=== PATIENT | male | born 1970 | race Caucasian/White ===

== ENCOUNTER 2017-10-14 18:49 | Emergency (ER) | payer MEDICAID ==
[~2017-10-14] VITALS: Ht 172.7 cm; Wt 100.0 kg
[~2017-10-14 18:49] MED LIST: MUPI15CR TOP
[2017-10-14 22:40] VITALS: BP 148/86
== END 2017-10-14 22:20 | disposition home or self-care (01) ==
LOC: ER 18:49
DX: M25.551 Pain in right hip (principal); I10 Essential (primary) hypertension; E11.9 Type 2 diabetes mellitus without complications; F17.200 Nicotine dependence, unspecified, uncomplicated; F15.90 Other stimulant use, unspecified, uncomplicated; Z59.0 Homelessness; Z98.890 Other specified postprocedural states; Z79.899 Other long term (current) drug therapy
CPT/HCPCS: 73502; 99284

== ENCOUNTER 2017-11-03 10:20 | Emergency (ER) | payer MEDICAID ==
[~2017-11-03] VITALS: Ht 170.2 cm; Wt 95.0 kg
[2017-11-03 10:27] VITALS: BP 142/65
[2017-11-03] MEDS ORDERED: CLIN300C53 PO (10:32)
== END 2017-11-03 10:59 | disposition home or self-care (01) ==
LOC: ER 10:21
DX: L02.414 Cutaneous abscess of left upper limb (principal); I10 Essential (primary) hypertension; E11.9 Type 2 diabetes mellitus without complications; F15.90 Other stimulant use, unspecified, uncomplicated; F17.200 Nicotine dependence, unspecified, uncomplicated; Z59.0 Homelessness; Z98.890 Other specified postprocedural states
CPT/HCPCS: 99284

== ENCOUNTER 2018-04-20 19:17 | Inpatient (IN) | payer MEDICAID ==
[~2018-04-20] VITALS: Ht 170.2 cm; Wt 100.0 kg
[~2018-04-20 19:17] MED LIST changes: +IBUP-1985 PO; +METH-360 PO
[2018-04-20] MEDS ORDERED: ibuprofen 100 MG/5 ML oral susp PO ONE (19:30)
[2018-04-20] MEDS ORDERED: ibuprofen 200mg tablet PO ONE (19:35)
[2018-04-20 20:05] LABS: BASOPHILS # (AUTO) 0.1 X10'3 (0-0.2); BASOPHILS % (AUTO) 0.2 % (0-1); EOSINOPHILS % (AUTO) 0 % (0-6); HEMOGLOBIN 13.8 g/dl (14.0-17.9); LYMPHOCYTES # (AUTO) 1.3 X10'3 (1.1-4.8); LYMPHOCYTES % (AUTO) 4.7 % (21-51); MEAN CORPUSCULAR HEMOGLOBIN 28.5 PG (27.0-31.0); MEAN CORPUSCULAR HGB CONC 33.5 g/dL (33.0-36.5); MEAN CORPUSCULAR VOLUME 85.1 FL (78-98); MEAN PLATELET VOLUME 8.4 FL (7.4-10.4); MONOCYTES # (AUTO) 1.4 X10'3 (0-0.9); NEUTROPHILS # (AUTO) 25.3 X10'3 (1.8-7.7); NEUTROPHILS % (AUTO) 90.1 % (42-75); PLATELET COUNT 264 X10'3 (140-440); RED BLOOD COUNT 4.83 X10'6 (4.70-6.10); RED CELL DISTRIBUTION WIDTH 14.2 % (11.5-14.5)
[2018-04-20 20:18] LABS: INR 1.1 INR; PARTIAL THROMBOPLASTIN TIME 30 SECONDS (22-32); PROTHROMBIN TIME 11.2 SECONDS (9.0-12.0)
[2018-04-20 20:26] LABS: ALANINE AMINOTRANSFERASE 35 U/L (12-78); ALBUMIN 3.8 G/DL (3.4-5.0); ALBUMIN/GLOBULIN RATIO 0.9 (1.1-1.5); ALKALINE PHOSPHATASE 102 IU/L (46-116); ANION GAP 12 (8-16); ASPARTATE AMINO TRANSFERASE 49 U/L (10-37); BLOOD UREA NITROGEN 24 MG/DL (7-18); BUN/CREATININE RATIO 15.8 (5.4-32.0); CALCIUM 8.9 MG/DL (8.5-10.1); CHLORIDE 98 MMOL/L (99-107); CREATININE 1.52 MG/DL (0.60-1.10); GLUCOSE 152 MG/DL (70-104); POTASSIUM 3.6 MMOL/L (3.5-5.1); SODIUM 138 MMOL/L (135-145); TOTAL PROTEIN 8.1 G/DL (6.4-8.2); eGFR 50 ML/MIN
[2018-04-20] MEDS ORDERED: normal saline 1000ML IV soln IVB ONE (20:35)
[2018-04-20] MEDS ORDERED: levoFLOXACIN-Levaquin 750MG/D5 150 ML IV STA (20:47)
[2018-04-20 20:50] LABS: PLATELET ESTIMATE NORMAL; TOTAL CELLS COUNTED 100
[2018-04-20] MEDS ORDERED: temazepam 15mg capsule PO PRN (21:00)
[2018-04-20] MEDS: normal saline 1000ml 1,000 ML IV SCH (22:03)
[2018-04-20] MEDS ORDERED: ondansetron/PF 4mg/2ml inj IV PRN (22:05)
[2018-04-20] MEDS ORDERED: magnesium hydroxide 30ml (MOM) UD suspension PO PRN (22:05)
[2018-04-20] MEDS ORDERED: mag hydrox/Alum hydrox/simeth 30ml oral suspension PO PRN (22:05)
[2018-04-20] MEDS ORDERED: acetaminophen 325mg tablet PO PRN ×2 (22:05)
[2018-04-20] MEDS ORDERED: METF500T PO (22:37)
[2018-04-20] MEDS ORDERED: GABA600T13 PO (22:37)
[2018-04-20 23:26] LABS: CLARITY,URINE CLEAR (Clear); COLOR,URINE YELLOW (Yellow); GLUCOSE, URINE 250 mg/dl (Neg); KETONES,URINE 40 mg/dl (Neg); LEUKOCYTE ESTERASE ,URINE NEGATIVE (Neg); NITRITES, URINE NEGATIVE (Neg); OCCULT BLOOD,URINE LARGE (Neg); PH,URINE 5.5 (4.8-8.0); PROTEIN,URINE 30 mg/dl (Neg); UROBILINOGEN,URINE 0.2 E.U/dL (0.2-1.0)
[2018-04-20 23:31] LABS: UA COLLECTION TYPE URINAL
[2018-04-20 23:33] LABS: MUCUS STRANDS MANY /LPF (Neg); SQUAMOUS EPITHELIAL CELL,UR MODERATE /LPF (FEW)
[2018-04-20 23:34] LABS: BACTERIA,URINE 1+ /HPF (Neg)
[2018-04-21] MEDS: HYDROcodone/acetaminophen 5mg/325mg tablet PO PRN ×2 (03:51→11:45)
--- NOTE | 2018-04-21 06:31 | NUR ---
PATIENT ON BED AWAKE.AWAITING FOR ROOM, ASSIGNMENT.
[2018-04-21 07:57] LABS: BASOPHILS % (AUTO) 0.2 % (0-1); EOSINOPHILS # (AUTO) 0.1 X10'3 (0-0.9); EOSINOPHILS % (AUTO) 0.3 % (0-6); HEMATOCRIT 34.4 % (42.0-52.0); HEMOGLOBIN 11.5 g/dl (14.0-17.9); LYMPHOCYTES # (AUTO) 1.5 X10'3 (1.1-4.8); LYMPHOCYTES % (AUTO) 6.4 % (21-51); MEAN CORPUSCULAR HEMOGLOBIN 28.7 PG (27.0-31.0); MEAN CORPUSCULAR HGB CONC 33.5 g/dL (33.0-36.5); MEAN CORPUSCULAR VOLUME 85.7 FL (78-98); MEAN PLATELET VOLUME 8.4 FL (7.4-10.4); MONOCYTES # (AUTO) 1.7 X10'3 (0-0.9); MONOCYTES % (AUTO) 7.2 % (2-12); NEUTROPHILS # (AUTO) 20.1 X10'3 (1.8-7.7); NEUTROPHILS % (AUTO) 85.9 % (42-75); PLATELET COUNT 217 X10'3 (140-440); RED BLOOD COUNT 4.02 X10'6 (4.70-6.10); RED CELL DISTRIBUTION WIDTH 14.4 % (11.5-14.5); WHITE BLOOD COUNT 23.4 X10'3 (4.5-11.0)
[2018-04-21] MEDS: normal saline 1000ml 1,000 ML IV SCH ×2 (08:03→21:39)
[2018-04-21] MEDS: enoxaparin 30mg/0.3ml syringe SUBCUT SCH (08:15)
[2018-04-21 08:16] LABS: ALBUMIN 2.7 G/DL (3.4-5.0); ANION GAP 10 (8-16); BLOOD UREA NITROGEN 24 MG/DL (7-18); BUN/CREATININE RATIO 27.3 (5.4-32.0); CHLORIDE 104 MMOL/L (99-107); CREATININE 0.88 MG/DL (0.60-1.10); GLUCOSE 112 MG/DL (70-104); POTASSIUM 3.4 MMOL/L (3.5-5.1); SODIUM 140 MMOL/L (135-145); TOTAL CARBON DIOXIDE 25.9 MMOL/L (24-32); eGFR > 90 ML/MIN
--- NOTE | 2018-04-21 08:40 | NUR ---
ATTEMPTED TO CALL REPORT,WILSON RN PASSING MEDS WILL CALL ED RN IN 10 MINUTES.
--- NOTE | 2018-04-21 09:40 | NUR ---
Report received from ED RNDaniela.
[2018-04-21 10:00] VITALS: BP 126/67
--- NOTE | 2018-04-21 10:00 | NUR ---
Pt arrived to room 359B from ED.
[2018-04-21] MEDS ORDERED: levoFLOXACIN 750MG TABLET PO SCH (11:00)
[2018-04-21 11:21] VITALS: BP 129/73
[2018-04-21 11:50] LABS: HEMOGLOBIN A1C 7.2 % (4.5-6.2)
[2018-04-21] MEDS ORDERED: dextrose 50%-water 50ml dispensing syringe IV PRN ×2 (11:50)
[2018-04-21] MEDS ORDERED: dextrose ORAL solution 15 GM/59 ML bottle PO PRN (11:50)
[2018-04-21] MEDS ORDERED: MESSAGE TO PHARMACY PO ONE (11:50)
[2018-04-21] MEDS ORDERED: glucagon, human recombinant 1mg kit SUBCUT PRN (11:50)
[2018-04-21] MEDS ORDERED: potassium Cl 40MEQ/NS 500ml 500 ML IV PRN ×2 (12:25)
[2018-04-21] MEDS ORDERED: magnesium Cl slow-release 64mg tablet PO PRN (12:25)
[2018-04-21] MEDS ORDERED: magnesium 4gm in 100ml NS 100 ML IV PRN (12:25)
[2018-04-21] MEDS ORDERED: magnesium 2GM in 50ml NS 50 ML IV PRN (12:25)
[2018-04-21] MEDS ORDERED: potassium Cl 20 mEq SR tablet PO PRN (12:25)
[2018-04-21] MEDS: potassium Cl 20 mEq SR tablet PO PRN ×3 (12:57→20:05)
[2018-04-21] MEDS ORDERED: METH-360 PO (12:59)
[2018-04-21] MEDS ORDERED: pneumococcal 23-VAL P-sac vacc 25 mcg/0.5ml vial IMVAC ONE ×2 (13:00→17:00)
--- NOTE | 2018-04-21 18:30 | NUR ---
Problems reprioritized. Patient report given, questions answered & plan of care reviewed with KWESI Campos.
--- NOTE | 2018-04-21 18:57 | NUR ---
Patient in room [facility] 359. I have received report from Maxime Gomez and had the opportunity to ask questions and assume patient care. Addendum: 04/21/18 at 1858 by Beth Tavarez RN Amended: Links added.
[2018-04-21 19:00] VITALS: BP 129/68
--- NOTE | 2018-04-21 19:30 | NUR ---
pt with temp and medicated for this and took hs meds.
[2018-04-21] MEDS: methylPREDNISolone sod succ 125mg/2ml vial IV SCH (20:04)
[2018-04-21] MEDS: lactobacillus rhamnosus 10,000 MMU CELLS/CAPSULE PO SCH (20:05)
[2018-04-21] MEDS: insulin glargine (Lantus) pen - multi-dose SQ SCH (20:14)
--- NOTE | 2018-04-21 21:00 | NUR ---
pt resting after medicating with tylenol and room temp turned down.
--- NOTE | 2018-04-21 23:00 | NUR ---
pt resting eyes closed without changes at this time.
[2018-04-22] VITALS: BP 147/76
--- NOTE | 2018-04-22 01:00 | NUR ---
pt resting eyes closed no changes.
--- NOTE | 2018-04-22 03:00 | NUR ---
resting eyes closed without changes.
[2018-04-22 04:00] VITALS: BP 146/73
[2018-04-22] MEDS: HYDROcodone/acetaminophen 5mg/325mg tablet PO PRN ×2 (05:20→19:56)
--- NOTE | 2018-04-22 05:20 | NUR ---
right leg approx 6cm area above Er marking on left calf heading toward the knee with greenish discoloration outline this am this area appears to have expanded.
--- NOTE | 2018-04-22 05:25 | NUR ---
pt medicated for pain with norco 5 for leg pain.
--- NOTE | 2018-04-22 06:47 | NUR ---
Problems reprioritized. Patient report given, questions answered & plan of care reviewed with Poonam Gomez.
--- NOTE | 2018-04-22 06:58 | NUR ---
Patient in room [facility] 359. I have received report from KWESI Campos and had the opportunity to ask questions and assume patient care.
[2018-04-22 07:20] VITALS: BP 153/77
[2018-04-22 07:24] LABS: ALBUMIN 2.6 G/DL (3.4-5.0); ANION GAP 12 (8-16); BLOOD UREA NITROGEN 22 MG/DL (7-18); BUN/CREATININE RATIO 26.2 (5.4-32.0); CALCIUM 8.6 MG/DL (8.5-10.1); CHLORIDE 104 MMOL/L (99-107); CREATININE 0.84 MG/DL (0.60-1.10); GLUCOSE 204 MG/DL (70-104); SODIUM 139 MMOL/L (135-145); TOTAL CARBON DIOXIDE 22.8 MMOL/L (24-32); eGFR > 90 ML/MIN
[2018-04-22 07:35] LABS: BASOPHILS % (AUTO) 0 % (0-1); EOSINOPHILS % (AUTO) 0 % (0-6); HEMATOCRIT 35.3 % (42.0-52.0); HEMOGLOBIN 11.8 g/dl (14.0-17.9); LYMPHOCYTES # (AUTO) 0.7 X10'3 (1.1-4.8); LYMPHOCYTES % (AUTO) 4.6 % (21-51); MEAN CORPUSCULAR HEMOGLOBIN 28.8 PG (27.0-31.0); MEAN CORPUSCULAR HGB CONC 33.4 g/dL (33.0-36.5); MEAN CORPUSCULAR VOLUME 86.2 FL (78-98); MEAN PLATELET VOLUME 8.7 FL (7.4-10.4); MONOCYTES # (AUTO) 0.7 X10'3 (0-0.9); MONOCYTES % (AUTO) 4.6 % (2-12); NEUTROPHILS # (AUTO) 14.7 X10'3 (1.8-7.7); NEUTROPHILS % (AUTO) 90.8 % (42-75); PLATELET COUNT 209 X10'3 (140-440); RED CELL DISTRIBUTION WIDTH 14.3 % (11.5-14.5); WHITE BLOOD COUNT 16.2 X10'3 (4.5-11.0)
[2018-04-22] MEDS: enoxaparin 30mg/0.3ml syringe SUBCUT SCH (08:47)
[2018-04-22] MEDS: pantoprazole 40mg Tablet.DR PO SCH (08:47)
[2018-04-22] MEDS: lactobacillus rhamnosus 10,000 MMU CELLS/CAPSULE PO SCH ×2 (08:47→19:52)
[2018-04-22] MEDS: methylPREDNISolone sod succ 125mg/2ml vial IV SCH ×2 (08:47→19:49)
[2018-04-22] MEDS ORDERED: levoFLOXACIN 750MG TABLET JT SCH (11:00)
[2018-04-22 11:30] VITALS: BP 153/81
[2018-04-22] MEDS: levoFLOXACIN 500mg tablet JT SCH (12:27)
[2018-04-22] MEDS: insulin Lispro (HumaLOG) vial - multi-dose SQ SCH ×3 (13:16→21:38)
[2018-04-22] MEDS: normal saline 1000ml 1,000 ML IV SCH (14:00)
[2018-04-22] MEDS: albuterol 2.5 MG/3 ML nebule NEB SCH ×2 (14:14→19:32)
--- NOTE | 2018-04-22 14:18 | NUR ---
Consult: Pt admit w/ PNA. Pt is with A1C 7.2. Met pt at bedside gave written and verbal DM and high protein education. Pt states [facility] which isn't enough food or protein. Reviewed reading nutrition labels w/ pt and encouraged pt to purchase ensure when able. Pt is agreeable to double protein and Ensure Chocolate High Protein TID, discussed w/ dietary and okayed w/ MD. Will continue to monitor. Addendum: 04/22/18 at [address] Amended: Links added. Addendum: 04/22/18 at [address] I have reviewed and agree with note by Editor Map. Tereza Chan RD
--- NOTE | 2018-04-22 18:59 | NUR ---
Problems reprioritized. Patient report given, questions answered & plan of care reviewed with KWESI Barrera.
--- NOTE | 2018-04-22 19:00 | NUR ---
Patient in room [facility] 359. I have received report from ROYAL OROSCO and had the opportunity to ask questions and assume patient care.
[2018-04-22] MEDS: nicotine 14mg patch - 24hr TD SCH (19:49)
[2018-04-22 20:00] VITALS: BP 124/61
[2018-04-22] MEDS: insulin glargine (Lantus) pen - multi-dose SQ SCH (21:37)
[2018-04-23] VITALS: BP 122/65
[2018-04-23] MEDS: HYDROcodone/acetaminophen 5mg/325mg tablet PO PRN ×5 (00:24→23:18)
[2018-04-23] MEDS: albuterol 2.5 MG/3 ML nebule NEB SCH ×4 (02:29→20:01)
[2018-04-23] MEDS: normal saline 1000ml 1,000 ML IV SCH (05:39)
--- NOTE | 2018-04-23 06:10 | NUR ---
Problems reprioritized. Patient report given, questions answered & plan of care reviewed with FAINA OROSCO.
[2018-04-23 06:11] LABS: BASOPHILS % (AUTO) 0.1 % (0-1); EOSINOPHILS # (AUTO) 0.2 X10'3 (0-0.9); EOSINOPHILS % (AUTO) 1.3 % (0-6); HEMATOCRIT 33.8 % (42.0-52.0); HEMOGLOBIN 11.2 g/dl (14.0-17.9); LYMPHOCYTES # (AUTO) 0.7 X10'3 (1.1-4.8); LYMPHOCYTES % (AUTO) 4.9 % (21-51); MEAN CORPUSCULAR HEMOGLOBIN 28.5 PG (27.0-31.0); MEAN CORPUSCULAR HGB CONC 33.1 g/dL (33.0-36.5); MEAN CORPUSCULAR VOLUME 86.1 FL (78-98); MEAN PLATELET VOLUME 8.9 FL (7.4-10.4); MONOCYTES # (AUTO) 0.5 X10'3 (0-0.9); MONOCYTES % (AUTO) 3.6 % (2-12); NEUTROPHILS # (AUTO) 13.5 X10'3 (1.8-7.7); NEUTROPHILS % (AUTO) 90.1 % (42-75); PLATELET COUNT 234 X10'3 (140-440); RED BLOOD COUNT 3.93 X10'6 (4.70-6.10); RED CELL DISTRIBUTION WIDTH 14.2 % (11.5-14.5)
--- NOTE | 2018-04-23 06:11 | NUR ---
Patient in room [facility] 359. I have received report from KWESI Barrera and had the opportunity to ask questions and assume patient care.
[2018-04-23 06:17] LABS: ALBUMIN 2.6 G/DL (3.4-5.0); ANION GAP 12 (8-16); BLOOD UREA NITROGEN 25 MG/DL (7-18); BUN/CREATININE RATIO 29.8 (5.4-32.0); CALCIUM 8.9 MG/DL (8.5-10.1); CHLORIDE 104 MMOL/L (99-107); CREATININE 0.84 MG/DL (0.60-1.10); GLUCOSE 250 MG/DL (70-104); POTASSIUM 3.9 MMOL/L (3.5-5.1); SODIUM 139 MMOL/L (135-145); TOTAL CARBON DIOXIDE 23.4 MMOL/L (24-32); eGFR > 90 ML/MIN
[2018-04-23 07:13] VITALS: BP 144/95
[2018-04-23] MEDS: methylPREDNISolone sod succ 125mg/2ml vial IV SCH ×2 (07:26→19:05)
[2018-04-23] MEDS: lactobacillus rhamnosus 10,000 MMU CELLS/CAPSULE PO SCH ×2 (07:26→19:05)
[2018-04-23] MEDS: pantoprazole 40mg Tablet.DR PO SCH (07:26)
[2018-04-23] MEDS: enoxaparin 30mg/0.3ml syringe SUBCUT SCH (07:27)
[2018-04-23] MEDS: nicotine 14mg patch - 24hr TD SCH (07:27)
[2018-04-23] MEDS: insulin Lispro (HumaLOG) vial - multi-dose SQ SCH ×3 (08:35→19:05)
[2018-04-23 12:15] VITALS: BP 145/80
[2018-04-23] MEDS: levoFLOXACIN 500mg tablet JT SCH (12:17)
[2018-04-23] MEDS: vancomycin inj 1,250 MG in normal saline 250ml IV soln 250 ML IV SCH ×2 (13:46→21:08)
--- NOTE | 2018-04-23 15:49 | NUR ---
Right forearm PIV infiltrated. DC'd, cannula intact. New 20g PIV initiated on the left forearm.
--- NOTE | 2018-04-23 18:21 | NUR ---
Patient in room [facility] 359. I have received report from Poonam OROSCO and had the opportunity to ask questions and assume patient care.
--- NOTE | 2018-04-23 18:21 | NUR ---
Problems reprioritized. Patient report given, questions answered & plan of care reviewed with KWESI De La Rosa.
[2018-04-23 20:00] VITALS: BP 149/77
[2018-04-23] MEDS: insulin glargine (Lantus) pen - multi-dose SQ SCH (21:11)
--- NOTE | 2018-04-23 21:12 | NUR ---
Nitcotine patch was removed and not documented. No nicotine patch present. will continue to moitor. Addendum: 04/23/18 at 2207 by Estrella Eagle RN Nitcotine patch was removed and not documented. No nicotine patch present. will continue to monitor.
[2018-04-24] VITALS: BP 141/69
[2018-04-24] MEDS: albuterol 2.5 MG/3 ML nebule NEB SCH ×4 (02:22→20:34)
[2018-04-24] MEDS: vancomycin inj 1,250 MG in normal saline 250ml IV soln 250 ML IV SCH ×3 (04:50→21:15)
--- NOTE | 2018-04-24 06:00 | NUR ---
Problems reprioritized. Patient report given, questions answered & plan of care reviewed with Laura OROSCO. NO signs of distress. pt resting. call light and frq used belongings within reach. IV intact and IVF infusing per MDs orders.
--- NOTE | 2018-04-24 06:00 | NUR ---
Patient in room [facility] 359. I have received report from KWESI De La Rosa and had the opportunity to ask questions and assume patient care. patient resting comfortably at this time. Call light and items of frequent use in reach of patient.
[2018-04-24 06:01] LABS: BASOPHILS % (AUTO) 0.1 % (0-1); EOSINOPHILS # (AUTO) 0.1 X10'3 (0-0.9); EOSINOPHILS % (AUTO) 0.8 % (0-6); HEMATOCRIT 33.3 % (42.0-52.0); HEMOGLOBIN 11.1 g/dl (14.0-17.9); LYMPHOCYTES # (AUTO) 1.4 X10'3 (1.1-4.8); LYMPHOCYTES % (AUTO) 8.1 % (21-51); MEAN CORPUSCULAR HEMOGLOBIN 28.6 PG (27.0-31.0); MEAN CORPUSCULAR HGB CONC 33.4 g/dL (33.0-36.5); MEAN CORPUSCULAR VOLUME 85.7 FL (78-98); MEAN PLATELET VOLUME 8.7 FL (7.4-10.4); MONOCYTES # (AUTO) 0.7 X10'3 (0-0.9); MONOCYTES % (AUTO) 4.1 % (2-12); NEUTROPHILS # (AUTO) 14.7 X10'3 (1.8-7.7); NEUTROPHILS % (AUTO) 86.9 % (42-75); PLATELET COUNT 269 X10'3 (140-440); RED BLOOD COUNT 3.89 X10'6 (4.70-6.10); RED CELL DISTRIBUTION WIDTH 14.4 % (11.5-14.5); WHITE BLOOD COUNT 16.9 X10'3 (4.5-11.0)
[2018-04-24 06:20] LABS: ALBUMIN 2.6 G/DL (3.4-5.0); ANION GAP 13 (8-16); BLOOD UREA NITROGEN 25 MG/DL (7-18); BUN/CREATININE RATIO 33.8 (5.4-32.0); CALCIUM 8.6 MG/DL (8.5-10.1); CHLORIDE 105 MMOL/L (99-107); CREATININE 0.74 MG/DL (0.60-1.10); GLUCOSE 134 MG/DL (70-104); POTASSIUM 3.4 MMOL/L (3.5-5.1); SODIUM 142 MMOL/L (135-145); eGFR > 90 ML/MIN
[2018-04-24 07:00] VITALS: BP 150/78
[2018-04-24] MEDS: pantoprazole 40mg Tablet.DR PO SCH (08:00)
[2018-04-24] MEDS: lactobacillus rhamnosus 10,000 MMU CELLS/CAPSULE PO SCH ×2 (08:01→19:14)
[2018-04-24] MEDS: methylPREDNISolone sod succ 125mg/2ml vial IV SCH ×2 (08:01→19:14)
[2018-04-24] MEDS: levoFLOXACIN-Levaquin 500mg/D5 100 ML IV SCH (08:01)
[2018-04-24] MEDS: potassium Cl 20 mEq SR tablet PO PRN ×3 (08:02→19:14)
[2018-04-24] MEDS: nicotine 14mg patch - 24hr TD SCH (08:02)
[2018-04-24] MEDS: enoxaparin 30mg/0.3ml syringe SUBCUT SCH (08:02)
[2018-04-24] MEDS: HYDROcodone/acetaminophen 5mg/325mg tablet PO PRN ×4 (08:03→23:37)
--- NOTE | 2018-04-24 09:00 | NUR ---
Patient refused MOM and stated that he feels fine.
[2018-04-24] MEDS: insulin Lispro (HumaLOG) vial - multi-dose SQ SCH ×2 (10:06→13:46)
[2018-04-24 10:24] VITALS: BP 150/79
[2018-04-24 11:09] VITALS: BP 177/93
[2018-04-24] MEDS ORDERED: VANCOMYCIN LEVEL IV NR (12:30)
[2018-04-24] MEDS ORDERED: magnesium Cl slow-release 64mg tablet PO PRN (14:40)
[2018-04-24] MEDS ORDERED: potassium Cl 20 mEq SR tablet PO PRN (14:40)
[2018-04-24] MEDS ORDERED: magnesium 4gm in 100ml NS 100 ML IV PRN (14:40)
[2018-04-24] MEDS ORDERED: potassium Cl 40MEQ/NS 500ml 500 ML IV PRN ×2 (14:40)
[2018-04-24] MEDS: dextrose ORAL solution 15 GM/59 ML bottle PO PRN (17:20)
--- NOTE | 2018-04-24 17:45 | NUR ---
1700 Patient blood sugar 53. 1712 15 G glucose shot given. 1727 blood sugar 92. Patient bumped down to a level 4 from a level 6. Patient alert, oriented and in no apparent distress at this time.
--- NOTE | 2018-04-24 18:30 | NUR ---
Problems reprioritized. Patient report given, questions answered & plan of care reviewed with KWESI De La Rosa. Patient alert, oriented and in no apparent distress at this time. Patient finishing dinner. Call light and items of frequent use in reach of patient.
[2018-04-24] MEDS: insulin glargine (Lantus) pen - multi-dose SQ SCH (21:13)
[2018-04-24] MEDS: normal saline 1000ml 1,000 ML IV SCH (21:39)
[2018-04-25] VITALS: BP 151/93
[2018-04-25] MEDS: albuterol 2.5 MG/3 ML nebule NEB SCH ×4 (02:28→20:01)
[2018-04-25] MEDS: vancomycin inj 1,250 MG in normal saline 250ml IV soln 250 ML IV SCH (04:28)
[2018-04-25] MEDS: HYDROcodone/acetaminophen 5mg/325mg tablet PO PRN ×4 (04:36→21:12)
[2018-04-25 05:39] LABS: BASOPHILS % (AUTO) 0.3 % (0-1); EOSINOPHILS # (AUTO) 0.1 X10'3 (0-0.9); EOSINOPHILS % (AUTO) 0.8 % (0-6); HEMATOCRIT 34.9 % (42.0-52.0); HEMOGLOBIN 11.6 g/dl (14.0-17.9); LYMPHOCYTES # (AUTO) 1.6 X10'3 (1.1-4.8); LYMPHOCYTES % (AUTO) 11.2 % (21-51); MEAN CORPUSCULAR HEMOGLOBIN 28.6 PG (27.0-31.0); MEAN CORPUSCULAR HGB CONC 33.3 g/dL (33.0-36.5); MEAN CORPUSCULAR VOLUME 85.7 FL (78-98); MEAN PLATELET VOLUME 8.7 FL (7.4-10.4); MONOCYTES # (AUTO) 1.1 X10'3 (0-0.9); MONOCYTES % (AUTO) 7.6 % (2-12); NEUTROPHILS # (AUTO) 11.4 X10'3 (1.8-7.7); NEUTROPHILS % (AUTO) 80.1 % (42-75); PLATELET COUNT 290 X10'3 (140-440); RED BLOOD COUNT 4.07 X10'6 (4.70-6.10); RED CELL DISTRIBUTION WIDTH 14.8 % (11.5-14.5); WHITE BLOOD COUNT 14.3 X10'3 (4.5-11.0)
[2018-04-25 05:53] LABS: ALBUMIN 2.7 G/DL (3.4-5.0); ANION GAP 11 (8-16); BLOOD UREA NITROGEN 24 MG/DL (7-18); BUN/CREATININE RATIO 21.8 (5.4-32.0); CALCIUM 8.7 MG/DL (8.5-10.1); CHLORIDE 101 MMOL/L (99-107); GLUCOSE 404 MG/DL (70-104); POTASSIUM 4.3 MMOL/L (3.5-5.1); SODIUM 138 MMOL/L (135-145); TOTAL CARBON DIOXIDE 25.6 MMOL/L (24-32); eGFR 72 ML/MIN
--- NOTE | 2018-04-25 06:29 | NUR ---
Patient in room [facility] 359. I have received report from KWESI De La Rosa and had the opportunity to ask questions and assume patient care. Patient resting comfortably at this time. Call light and items of frequent use in reach of patient.
--- NOTE | 2018-04-25 06:33 | NUR ---
Problems reprioritized. Patient report given, questions answered & plan of care reviewed with Laura OROSCO. IV intact and IVF infusing per MDs orders. call light and frq used belongings within reach. no signs of distress. pt resting, eyes closed.
[2018-04-25 07:00] VITALS: BP 165/86
[2018-04-25] MEDS: pantoprazole 40mg Tablet.DR PO SCH (08:50)
[2018-04-25] MEDS: lactobacillus rhamnosus 10,000 MMU CELLS/CAPSULE PO SCH ×2 (08:51→19:39)
[2018-04-25] MEDS: methylPREDNISolone sod succ 125mg/2ml vial IV SCH ×2 (08:51→19:39)
[2018-04-25] MEDS: levoFLOXACIN-Levaquin 500mg/D5 100 ML IV SCH (08:51)
[2018-04-25] MEDS: enoxaparin 30mg/0.3ml syringe SUBCUT SCH (08:52)
[2018-04-25] MEDS: nicotine 21mg patch - 24 hr TD SCH (08:52)
[2018-04-25] MEDS: insulin Lispro (HumaLOG) vial - multi-dose SQ SCH ×2 (09:16→19:43)
[2018-04-25 11:00] VITALS: BP 155/77
--- NOTE | 2018-04-25 12:30 | NUR ---
Patient feeling shaky and weak, Patient blood sugar was 37 at 1212. 30 G of glucose shot given and at 1227 blood sugar was 90. Patient alert and oriented and in no apparent distress now. Patient bumped from a level 4 to a level 2. Will continue to monitor patient.
--- NOTE | 2018-04-25 13:42 | NUR ---
Initial: Pt admit with PNA, sepsis, and SOB. Per MD progress notes sepsis has resolved and pt on abx for tx of PNA and cellulitis. Pt also on steroids for COPD exacerbation treatment per MD progress notes. Pt currently on CHO controlled diet with double protein with documented PO intake 100% meeting nutrient needs. LBM 04/24. No edema or wounds. Will continue to follow. Recommendations: 1) Continue CHO controlled diet 2) Continue double protein TID; Chocolate Ensure high protein TID 3) Wt per rx Addendum: 04/25/18 at [address] Amended: Links added.
[2018-04-25] MEDS: clindamycin-Cleocin 900mg/D5W 50 ML IV SCH ×2 (16:47→23:54)
[2018-04-25] MEDS: normal saline 1000ml 1,000 ML IV SCH (16:51)
--- NOTE | 2018-04-25 18:24 | NUR ---
Problems reprioritized. Patient report given, questions answered & plan of care reviewed with KWESI Paulino.
[2018-04-25 18:50] VITALS: BP 159/65
[2018-04-25] MEDS: insulin glargine (Lantus) pen - multi-dose SQ SCH (21:44)
[2018-04-26] VITALS: BP 148/80
[2018-04-26] MEDS: albuterol 2.5 MG/3 ML nebule NEB SCH ×4 (01:57→21:27)
[2018-04-26] MEDS: HYDROcodone/acetaminophen 5mg/325mg tablet PO PRN ×5 (02:31→23:38)
[2018-04-26 07:30] VITALS: BP 154/91
[2018-04-26] MEDS: clindamycin-Cleocin 900mg/D5W 50 ML IV SCH ×3 (07:59→23:42)
[2018-04-26] MEDS: pantoprazole 40mg Tablet.DR PO SCH (08:00)
[2018-04-26] MEDS: lactobacillus rhamnosus 10,000 MMU CELLS/CAPSULE PO SCH ×2 (08:00→19:16)
[2018-04-26] MEDS: insulin Lispro (HumaLOG) vial - multi-dose SQ SCH ×3 (09:14→19:12)
[2018-04-26] MEDS: methylPREDNISolone sod succ 125mg/2ml vial IV SCH ×2 (09:16→19:16)
[2018-04-26] MEDS: enoxaparin 30mg/0.3ml syringe SUBCUT SCH (09:19)
[2018-04-26] MEDS: nicotine 21mg patch - 24 hr TD SCH (09:20)
[2018-04-26] MEDS: CefTRIAXone 2gm/D5W 50ml 50 ML IV SCH (09:21)
[2018-04-26 10:22] LABS: HIV ANTIBODY 1&2 RAPID NON-REACTIVE (Neg)
[2018-04-26 11:00] VITALS: BP 159/79
--- NOTE | 2018-04-26 18:55 | NUR ---
Problems reprioritized. Patient report given, questions answered & plan of care reviewed with Sophie OROSCO.
[2018-04-26 19:00] VITALS: BP 158/89
--- NOTE | 2018-04-26 21:00 | NUR ---
Pt thought blood sugar was dropping, 88 was his sugar, sandwich given w/ juice. Recheck in one hour had sugar at 119. Salcha good, no further 'unusual feelings'.
[2018-04-26] MEDS: insulin glargine (Lantus) pen - multi-dose SQ SCH (21:02)
[2018-04-26] MEDS: normal saline 1000ml 1,000 ML IV SCH (21:39)
[2018-04-27 00:01] VITALS: BP 139/64
[2018-04-27] MEDS: albuterol 2.5 MG/3 ML nebule NEB SCH ×2 (03:53→07:43)
[2018-04-27] MEDS: HYDROcodone/acetaminophen 5mg/325mg tablet PO PRN ×2 (05:32→09:27)
[2018-04-27 06:24] LABS: BASOPHILS # (AUTO) 0.1 X10'3 (0-0.2); BASOPHILS % (AUTO) 0.8 % (0-1); EOSINOPHILS # (AUTO) 0.2 X10'3 (0-0.9); HEMATOCRIT 36.6 % (42.0-52.0); HEMOGLOBIN 12.2 g/dl (14.0-17.9); LYMPHOCYTES # (AUTO) 2.1 X10'3 (1.1-4.8); LYMPHOCYTES % (AUTO) 13.7 % (21-51); MEAN CORPUSCULAR HEMOGLOBIN 28.9 PG (27.0-31.0); MEAN CORPUSCULAR HGB CONC 33.4 g/dL (33.0-36.5); MEAN CORPUSCULAR VOLUME 86.6 FL (78-98); MEAN PLATELET VOLUME 8.6 FL (7.4-10.4); MONOCYTES # (AUTO) 0.4 X10'3 (0-0.9); MONOCYTES % (AUTO) 2.6 % (2-12); NEUTROPHILS # (AUTO) 12.6 X10'3 (1.8-7.7); NEUTROPHILS % (AUTO) 81.9 % (42-75); PLATELET COUNT 374 X10'3 (140-440); RED BLOOD COUNT 4.22 X10'6 (4.70-6.10); RED CELL DISTRIBUTION WIDTH 14.6 % (11.5-14.5); WHITE BLOOD COUNT 15.4 X10'3 (4.5-11.0)
--- NOTE | 2018-04-27 06:24 | NUR ---
Report given to Cinthia OROSCO, questions asked and answered, rests quietly pain better
[2018-04-27 06:32] LABS: MAGNESIUM 2.1 MG/DL (1.5-2.4); POTASSIUM 4.2 MMOL/L (3.5-5.1)
[2018-04-27] MEDS: CefTRIAXone 2gm/D5W 50ml 50 ML IV SCH (07:29)
[2018-04-27 08:00] VITALS: BP_SYST 112; BP_SYST 137; BP_DIAS 68; BP_DIAS 74
[2018-04-27] MEDS: pantoprazole 40mg Tablet.DR PO SCH (09:01)
[2018-04-27] MEDS: lactobacillus rhamnosus 10,000 MMU CELLS/CAPSULE PO SCH (09:01)
[2018-04-27] MEDS: methylPREDNISolone sod succ 125mg/2ml vial IV SCH (09:02)
[2018-04-27] MEDS: enoxaparin 30mg/0.3ml syringe SUBCUT SCH (09:03)
[2018-04-27] MEDS: nicotine 21mg patch - 24 hr TD SCH (09:04)
[2018-04-27] MEDS ORDERED: CLINDAmcin 900mg/NS 50ml IVPB 50 ML IV SCH (09:23)
[2018-04-27] MEDS: insulin Lispro (HumaLOG) vial - multi-dose SQ SCH (09:25)
[2018-04-27] MEDS ORDERED: ALBU2.5V7 NEB (10:44)
[2018-04-27] MEDS ORDERED: CLIN300C85 PO (10:44)
[2018-04-27] MEDS ORDERED: NICO-687 TD (10:44)
[2018-04-27] MEDS ORDERED: CEFD300C3 PO (10:47)
[2018-04-27] MEDS ORDERED: IPRA4AER IH (10:49)
[2018-04-27] MEDS ORDERED: BUDE180A INH (10:49)
[2018-04-27 11:00] VITALS: BP 183/103
--- NOTE | 2018-04-27 11:49 | NUR ---
Discussed new Vantin order with MD Dan. She states pt. does not need to go home on this ABT as long as he is on clindamycin, and cefdinir.
[2018-04-27] MEDS: dextrose ORAL solution 15 GM/59 ML bottle PO PRN (12:18)
--- NOTE | 2018-04-27 12:33 | NUR ---
Pt. had critical glucose of 53, glucose PO per order given, BG rechecked and is 123. Pt. asymptomatic at all times. Eating lunch before discharge. Pt. states he does not have a BG monitor at home. One given to him with instructions and education. Good feedback. Will cont. to monitor on my shift.
--- NOTE | 2018-04-27 13:00 | NUR ---
Pt. discharged in stable condition after eating lunch. Has weather appropriate clothing. Pt.s IV discontinue and pressure bandage applied, no s/sx of bleeding. Discharge paperwork, follow up and medications reviewed with pt. Pt. given glucometer with instructions on how to use it and directions to get to a pharmacy in regards to insurance coverage on glucometer testing strips. Pt. states he visits Erendira basurto MD Mondays and and that is who he will do his follow up care with. Pt. did not [facility] but wanted to walk. Assisted by staff member in a w/c to first floor and lobby of the hospital.
[2018-04-27] MEDS ORDERED: cefpodoxime proxetil 100mg tablet PO SCH (17:30)
== END 2018-04-27 12:45 | disposition home or self-care (01) | DRG 720 ==
LOC: ER 19:17 → ED HOLD 22:03 → SUR 3N 04-21 10:00
PROVIDERS: ADMIT Hospitalist; ATTEND Internal Medicine
PROC: 3E0234Z Introduction of Serum, Toxoid and Vaccine into Muscle, Percutaneous Approach (ICD-10-PCS; principal; 2018-04-21)
DX: A41.9 Sepsis, unspecified organism (principal); N17.9 Acute kidney failure, unspecified; J18.1 Lobar pneumonia, unspecified organism; J44.0 Chronic obstructive pulmonary disease with (acute) lower respiratory infection; L03.115 Cellulitis of right lower limb; A46 Erysipelas; E11.9 Type 2 diabetes mellitus without complications; F15.90 Other stimulant use, unspecified, uncomplicated; G89.29 Other chronic pain; F17.210 Nicotine dependence, cigarettes, uncomplicated; R21 Rash and other nonspecific skin eruption; I10 Essential (primary) hypertension; J44.1 Chronic obstructive pulmonary disease with (acute) exacerbation; Z59.0 Homelessness; Z79.84 Long term (current) use of oral hypoglycemic drugs; Z23 Encounter for immunization; Z79.899 Other long term (current) drug therapy; Z71.6 Tobacco abuse counseling
CPT/HCPCS: 36415; 71045; 80048; 80053; 80202; 81001; 82948; 83036; 83605; 83735; 84132; 85025; 85610; 85730; 86703; 87040; 87070; 87502; 87503; 90732; 93922; 93926; 94640; 94667; 94668; 94760; 96365; 99285; G0378; J0696; J1650; J1815; J1956; J2930; J3370; J3490; J7030

== ENCOUNTER 2018-12-13 09:26 | Emergency (ER) | payer MEDICAID ==
[~2018-12-13] VITALS: Ht 172.7 cm; Wt 98.8 kg
[~2018-12-13 09:26] MED LIST changes: +ALBU2.5V7 NEB; +BUDE180A INH; +CLIN-90 PO; +GABA600T13 PO; -IBUP-1985 PO; +METF500T PO; -MUPI15CR TOP; +NICO-687 TD
[2018-12-13 10:02] VITALS: BP 145/78
== END 2018-12-13 11:50 | disposition left against medical advice (07) ==
LOC: ER 09:27
DX: R05 Cough (principal); Z53.21 Procedure and treatment not carried out due to patient leaving prior to being seen by health care provider

== ENCOUNTER 2019-01-02 13:41 | Emergency (ER) | payer MEDICAID ==
[~2019-01-02] VITALS: Ht 172.7 cm; Wt 99.0 kg
[~2019-01-02 13:41] MED LIST changes: -CLIN-90 PO; +CLIN-96 PO
[2019-01-02] MEDS ORDERED: TETanus/Pertussis (Acell)/Diphther VAC/PF (Tdap-Adult) 0.5ml syringe IM ONE (15:20)
[2019-01-02 15:32] LABS: BASOPHILS # (AUTO) 0.2 X10'3 (0-0.2); BASOPHILS % (AUTO) 0.9 % (0-1); EOSINOPHILS # (AUTO) 0.2 X10'3 (0-0.9); HEMATOCRIT 37.7 % (42.0-52.0); HEMOGLOBIN 12.5 g/dl (14.0-17.9); LYMPHOCYTES # (AUTO) 1.6 X10'3 (1.1-4.8); LYMPHOCYTES % (AUTO) 8.5 % (21-51); MEAN CORPUSCULAR HEMOGLOBIN 29.4 PG (27.0-31.0); MEAN CORPUSCULAR HGB CONC 33.2 g/dL (33.0-36.5); MEAN CORPUSCULAR VOLUME 88.4 FL (78-98); MEAN PLATELET VOLUME 8.3 FL (7.4-10.4); MONOCYTES # (AUTO) 1.5 X10'3 (0-0.9); MONOCYTES % (AUTO) 7.6 % (2-12); NEUTROPHILS # (AUTO) 15.6 X10'3 (1.8-7.7); PLATELET COUNT 358 X10'3 (140-440); RED BLOOD COUNT 4.26 X10'6 (4.70-6.10); RED CELL DISTRIBUTION WIDTH 13.4 % (11.5-14.5)
[2019-01-02 15:51] LABS: ALANINE AMINOTRANSFERASE 45 U/L (12-78); ALBUMIN 3.7 G/DL (3.4-5.0); ALKALINE PHOSPHATASE 92 IU/L (46-116); ANION GAP 7 (8-16); ASPARTATE AMINO TRANSFERASE 21 U/L (10-37); BILIRUBIN,TOTAL 0.4 MG/DL (0.1-1.0); BLOOD UREA NITROGEN 17 MG/DL (7-18); BUN/CREATININE RATIO 19.3 (5.4-32.0); CALCIUM 9.6 MG/DL (8.5-10.1); CHLORIDE 102 MMOL/L (99-107); CREATININE 0.88 MG/DL (0.60-1.10); GLUCOSE 233 MG/DL (70-104); POTASSIUM 3.8 MMOL/L (3.5-5.1); SODIUM 140 MMOL/L (135-145); TOTAL CARBON DIOXIDE 30.9 MMOL/L (24-32); TOTAL PROTEIN 7.3 G/DL (6.4-8.2); eGFR > 90 ML/MIN
[2019-01-02 16:32] VITALS: BP 173/85
[2019-01-02] MEDS ORDERED: CEPH500C5 PO (16:51)
== END 2019-01-02 17:03 | disposition home or self-care (01) ==
LOC: ER 13:41
DX: S40.812A Abrasion of left upper arm, initial encounter (principal); S50.812A Abrasion of left forearm, initial encounter; L03.114 Cellulitis of left upper limb; E11.65 Type 2 diabetes mellitus with hyperglycemia; G89.29 Other chronic pain; F17.200 Nicotine dependence, unspecified, uncomplicated; F15.90 Other stimulant use, unspecified, uncomplicated; R19.7 Diarrhea, unspecified; R11.2 Nausea with vomiting, unspecified; Z59.0 Homelessness; Z98.890 Other specified postprocedural states; Z79.84 Long term (current) use of oral hypoglycemic drugs; Z79.899 Other long term (current) drug therapy; W22.8XXA Striking against or struck by other objects, initial encounter; Y93.89 Activity, other specified; Y92.89 Other specified places as the place of occurrence of the external cause; Y99.8 Other external cause status
CPT/HCPCS: 36415; 80053; 85025; 90471; 99283

== ENCOUNTER 2019-04-09 06:32 | Emergency (ER) | payer MEDICAID ==
[~2019-04-09] VITALS: Ht 170.2 cm; Wt 90.9 kg
[~2019-04-09 06:32] MED LIST changes: +CEPH500C5 PO; +CLIN-90 PO; -CLIN-96 PO
[2019-04-09 06:33] VITALS: BP 104/69
[2019-04-09] MEDS ORDERED: DOXY100C43 PO (06:45)
[2019-04-09] MEDS ORDERED: acetaminophen 325mg tablet PO ONE (06:45)
[2019-04-09] MEDS ORDERED: ALBU18HF2 INH (06:45)
[2019-04-09] MEDS ORDERED: PRED20TA PO (06:45)
== END 2019-04-09 07:08 | disposition home or self-care (01) ==
LOC: ER 06:32
DX: J20.9 Acute bronchitis, unspecified (principal); J06.9 Acute upper respiratory infection, unspecified; E11.65 Type 2 diabetes mellitus with hyperglycemia; F17.210 Nicotine dependence, cigarettes, uncomplicated; F15.90 Other stimulant use, unspecified, uncomplicated; I10 Essential (primary) hypertension; G89.29 Other chronic pain; Z98.890 Other specified postprocedural states; Z59.0 Homelessness; Z79.84 Long term (current) use of oral hypoglycemic drugs; Z79.899 Other long term (current) drug therapy
CPT/HCPCS: 82948; 93005; 99283; 99406

== ENCOUNTER 2019-12-30 08:06 | Emergency (ER) | payer MEDICAID ==
[~2019-12-30 08:06] MED LIST changes: +ALBU18HF2 INH; -CLIN-90 PO; +CLIN-97 PO
[2019-12-30 08:11] VITALS: BP 170/78
[2019-12-30] MEDS ORDERED: AMOX500C2 PO (08:28)
[2019-12-31] MEDS ORDERED: AMOX-117 PO (07:39)
[2019-12-31] MEDS ORDERED: HYDR-4383 PO (07:39)
== END 2019-12-30 08:48 | disposition home or self-care (01) ==
LOC: ER 08:06
DX: K08.89 Other specified disorders of teeth and supporting structures (principal); I10 Essential (primary) hypertension; E11.9 Type 2 diabetes mellitus without complications; G89.29 Other chronic pain; F15.90 Other stimulant use, unspecified, uncomplicated; Z87.01 Personal history of pneumonia (recurrent); Z98.890 Other specified postprocedural states; Z59.0 Homelessness; Z79.2 Long term (current) use of antibiotics; Z79.899 Other long term (current) drug therapy
CPT/HCPCS: 99283

== ENCOUNTER 2019-12-31 07:08 | Emergency (ER) | payer MEDICAID ==
[~2019-12-31] VITALS: Ht 170.2 cm; Wt 109.3 kg
[~2019-12-31 07:08] MED LIST changes: +AMOX500C2 PO
[2019-12-31 07:12] VITALS: BP 127/84
[2019-12-31] MEDS ORDERED: amox tr/potassium clavulanate 875/125mg TAB PO ONE (07:35)
[2019-12-31] MEDS ORDERED: HYDROcodone/acetaminophen 10/325mg tab PO ONE (07:35)
[2019-12-31] MEDS ORDERED: dexamethasone 4mg tablet PO ONE (07:35)
[2019-12-31] MEDS ORDERED: HYDR-4383 PO (07:39)
[2019-12-31] MEDS ORDERED: AMOX-117 PO (07:39)
[2019-12-31] MEDS ORDERED: insulin regular, human 10 units/0.1 ml syringe SQ ONE (07:55)
== END 2019-12-31 08:24 | disposition home or self-care (01) ==
LOC: ER 07:09
DX: K04.7 Periapical abscess without sinus (principal); I10 Essential (primary) hypertension; J18.9 Pneumonia, unspecified organism; G89.29 Other chronic pain; F15.10 Other stimulant abuse, uncomplicated; Z59.0 Homelessness
CPT/HCPCS: 82948; 96372; 99284; J1815

== ENCOUNTER 2020-04-11 15:29 | Emergency (ER) | payer MEDICAID ==
[~2020-04-11] VITALS: Ht 170.2 cm; Wt 109.1 kg
[~2020-04-11 15:29] MED LIST changes: -AMOX500C2 PO; -CEPH500C5 PO; +HYDR-4383 PO
[2020-04-11] MEDS ORDERED: BUPIVAcaine/PF 2.5 mg/ml (0.25%) 30ml vial IJ ONE (17:05)
[2020-04-11] MEDS ORDERED: BUPIVAcaine/PF 2.5mg/ml (0.25%) 10ml vial IJ ONE (17:10)
[2020-04-11] MEDS ORDERED: PENI500T2 PO (17:24)
[2020-04-11] MEDS ORDERED: penicillin V potassium 500mg tablet PO ONE (17:25)
[2020-04-11 18:06] VITALS: BP 169/104
== END 2020-04-11 18:07 | disposition home or self-care (01) ==
LOC: ER 15:30
DX: K04.7 Periapical abscess without sinus (principal); K08.89 Other specified disorders of teeth and supporting structures; I10 Essential (primary) hypertension; E11.9 Type 2 diabetes mellitus without complications; G89.29 Other chronic pain; F15.90 Other stimulant use, unspecified, uncomplicated; Z59.0 Homelessness; Z87.01 Personal history of pneumonia (recurrent); Z98.890 Other specified postprocedural states; Z79.2 Long term (current) use of antibiotics; Z79.899 Other long term (current) drug therapy
CPT/HCPCS: 41800; 99284

== ENCOUNTER 2020-06-09 11:28 | Emergency (ER) | payer MEDICAID ==
[~2020-06-09] VITALS: Ht 170.2 cm; Wt 104.5 kg
[2020-06-09] MEDS ORDERED: PRED20TA PO (12:35)
[2020-06-09] MEDS ORDERED: BECL7.3A INH (12:35)
[2020-06-09] MEDS ORDERED: AZIT250T PO (12:35)
[2020-06-09 13:15] VITALS: BP 165/80
== END 2020-06-09 13:17 | disposition home or self-care (01) ==
LOC: ER 11:28
DX: J45.21 Mild intermittent asthma with (acute) exacerbation (principal); Z20.822 Contact with and (suspected) exposure to COVID-19; R05 Cough; R06.02 Shortness of breath; I10 Essential (primary) hypertension; E11.9 Type 2 diabetes mellitus without complications; G89.29 Other chronic pain; F15.90 Other stimulant use, unspecified, uncomplicated; Z87.01 Personal history of pneumonia (recurrent); Z98.890 Other specified postprocedural states; Z59.0 Homelessness; Z79.2 Long term (current) use of antibiotics; Z79.899 Other long term (current) drug therapy
CPT/HCPCS: 36415; 71045; 99284; U0003

== ENCOUNTER 2020-06-24 11:33 | Emergency (ER) | payer MEDICAID ==
[~2020-06-24] VITALS: Ht 170.2 cm; Wt 109.1 kg
[~2020-06-24 11:33] MED LIST changes: +BECL7.3A INH
[2020-06-24 11:40] VITALS: BP 171/92
[2020-06-24] MEDS ORDERED: NAPR-56 PO (12:17)
== END 2020-06-24 12:23 | disposition home or self-care (01) ==
LOC: ER 11:34
DX: R07.89 Other chest pain (principal); R05 Cough; R09.89 Other specified symptoms and signs involving the circulatory and respiratory systems; I10 Essential (primary) hypertension; E11.9 Type 2 diabetes mellitus without complications; G89.29 Other chronic pain; F17.200 Nicotine dependence, unspecified, uncomplicated; F15.90 Other stimulant use, unspecified, uncomplicated; Z87.01 Personal history of pneumonia (recurrent); Z59.0 Homelessness; Z79.2 Long term (current) use of antibiotics; Z79.899 Other long term (current) drug therapy
CPT/HCPCS: 71046; 99283

== ENCOUNTER 2021-10-04 16:24 | Inpatient (IN) | payer MEDICAID ==
[~2021-10-04] VITALS: Ht 170.2 cm; Wt 110.0 kg
[2021-10-04] MEDS ORDERED: aspirin 325mg tablet PO ONE (16:40)
[2021-10-04] MEDS ORDERED: iohexol 350MG/ML 100ml bottle IV ONE (16:42)
[2021-10-04 16:48] LABS: BASOPHILS # (AUTO) 0.1 X10'3 (0-0.2); BASOPHILS % (AUTO) 1.1 % (0-1); EOSINOPHILS # (AUTO) 0.2 X10'3 (0-0.9); EOSINOPHILS % (AUTO) 2.3 % (0-6); HEMOGLOBIN 13.5 g/dl (14.0-17.9); LYMPHOCYTES # (AUTO) 2.8 X10'3 (1.1-4.8); MEAN CORPUSCULAR HEMOGLOBIN 29.3 PG (27.0-31.0); MEAN CORPUSCULAR HGB CONC 33.7 g/dL (33.0-36.5); MEAN CORPUSCULAR VOLUME 86.9 FL (78-98); MEAN PLATELET VOLUME 8.1 FL (7.4-10.4); MONOCYTES # (AUTO) 0.7 X10'3 (0-0.9); MONOCYTES % (AUTO) 7.1 % (2-12); NEUTROPHILS # (AUTO) 6.3 X10'3 (1.8-7.7); NEUTROPHILS % (AUTO) 61.5 % (42-75); PLATELET COUNT 340 X10'3 (140-440); RED CELL DISTRIBUTION WIDTH 13.5 % (11.5-14.5); WHITE BLOOD COUNT 10.2 X10'3 (4.5-11.0)
[2021-10-04 17:03] LABS: ALANINE AMINOTRANSFERASE 36 U/L (12-78); ALBUMIN 3.2 G/DL (3.4-5.0); ALBUMIN/GLOBULIN RATIO 0.9 (1.1-1.5); ALKALINE PHOSPHATASE 91 IU/L (46-116); ANION GAP 9 (8-16); ASPARTATE AMINO TRANSFERASE 17 U/L (10-37); BILIRUBIN,TOTAL 0.2 MG/DL (0.1-1.0); BLOOD UREA NITROGEN 18 MG/DL (7-18); BUN/CREATININE RATIO 18.2 (5.4-32.0); CALCIUM 8.3 MG/DL (8.5-10.1); CHLORIDE 107 MMOL/L (99-107); CREATININE 0.99 MG/DL (0.60-1.10); GLUCOSE 320 MG/DL (70-104); POTASSIUM 3.5 MMOL/L (3.5-5.1); SODIUM 139 MMOL/L (135-145); TOTAL CARBON DIOXIDE 22.7 MMOL/L (24-32); TOTAL PROTEIN 6.6 G/DL (6.4-8.2); eGFR 80 ML/MIN
[2021-10-04] MEDS: normal saline 1000ml 1,000 ML IV SCH (17:35)
[2021-10-04] MEDS ORDERED: potassium CL 10mEq/100ml bag 100 ML IV PRN (17:35)
[2021-10-04] MEDS ORDERED: magnesium 2GM in 50ml NS 50 ML IV PRN (17:35)
[2021-10-04] MEDS ORDERED: POTASSIUM BICARB 20meq eff tab 20 MEQ TABLET.EFF PO PRN ×2 (17:35)
[2021-10-04] MEDS ORDERED: ondansetron/PF 4mg/2ml inj IV PRN (17:35)
[2021-10-04] MEDS ORDERED: magnesium 4gm in 100ml NS 100 ML IV PRN (17:35)
[2021-10-04] MEDS ORDERED: acetaminophen 325mg tablet PO PRN (17:35)
[2021-10-04] MEDS ORDERED: magnesium Cl slow-release 64mg tablet PO PRN (17:35)
[2021-10-04] MEDS ORDERED: PERFLUTREN PROTEIN-A MICROSPHR (Optison) 0.22 MG/ML 3ML VIAL IV ONE (17:35)
[2021-10-04 18:17] LABS: MAGNESIUM 1.9 MG/DL (1.5-2.4)
[2021-10-04 18:24] LABS: HEMOGLOBIN A1C 13.3 % (4.5-6.2)
[2021-10-04] MEDS: K and/or MAG REPLACEMENT MC SCH (20:00)
--- NOTE | 2021-10-04 20:16 | NUR ---
PAGER ID: [phone] MESSAGE: Felipe [place], 74 in ED RM 13 is diabetic and needs the diabetic protocol ordered. Maciej Hill RN [id number]
--- NOTE | 2021-10-04 20:32 | NUR ---
Pt declined IV fluids, passes swallow study with nurse on previous shift. Pt given water and encouraged to drink. Will continue to monitor for swallowing difficulties.
[2021-10-04 21:22] LABS: CLARITY,URINE CLEAR (Clear); COLOR,URINE YELLOW (Yellow); GLUCOSE, URINE >=1000 mg/dl (Neg); KETONES,URINE NEGATIVE (Neg); LEUKOCYTE ESTERASE ,URINE NEGATIVE (Neg); NITRITES, URINE NEGATIVE (Neg); OCCULT BLOOD,URINE NEGATIVE (Neg); PROTEIN,URINE NEGATIVE (Neg); UROBILINOGEN,URINE 0.2 E.U/dL (0.2-1.0)
[2021-10-04 21:23] LABS: URINE AMPHETAMINE SCREEN NEGATIVE (Neg); URINE BARBITUATE SCREEN NEGATIVE (Neg); URINE BENZODIAZEPINES SCREEN NEGATIVE (Neg); URINE CANNABINOID SCREEN NEGATIVE (Neg); URINE COCAINE SCREEN NEGATIVE (Neg); URINE METHADONE SCREEN NEGATIVE (Neg); URINE OPIATE SCREEN NEGATIVE (Neg); URINE PHENCYCLIDINE SCREEN NEGATIVE (Neg)
[2021-10-04 21:26] LABS: UA COLLECTION TYPE URINAL
[2021-10-04 21:33] LABS: BACTERIA,URINE NONE SEEN /HPF (Neg); RBC,URINE NONE SEEN /HPF (0-2); SQUAMOUS EPITHELIAL CELL,UR FEW /LPF (FEW); WBC,URINE 0-4 /HPF (0-4)
[2021-10-04 21:34] LABS: MUCUS STRANDS NONE SEEN /LPF (Neg)
[2021-10-05 06:39] LABS: EOSINOPHILS # (AUTO) 0.4 X10'3 (0-0.9); LYMPHOCYTES # (AUTO) 2.9 X10'3 (1.1-4.8); MONOCYTES # (AUTO) 0.7 X10'3 (0-0.9); MONOCYTES % (AUTO) 8.9 % (2-12)
[2021-10-05 06:42] LABS: BASOPHILS # (AUTO) 0.1 X10'3 (0-0.2); BASOPHILS % (AUTO) 0.9 % (0-1); HEMATOCRIT 39.1 % (42.0-52.0); HEMOGLOBIN 13.2 g/dl (14.0-17.9); LYMPHOCYTES % (AUTO) 35.8 % (21-51); MEAN CORPUSCULAR HEMOGLOBIN 29.1 PG (27.0-31.0); MEAN CORPUSCULAR HGB CONC 33.8 g/dL (33.0-36.5); MEAN CORPUSCULAR VOLUME 86.2 FL (78-98); MEAN PLATELET VOLUME 8.2 FL (7.4-10.4); NEUTROPHILS # (AUTO) 4.1 X10'3 (1.8-7.7); NEUTROPHILS % (AUTO) 49.4 % (42-75); PLATELET COUNT 313 X10'3 (140-440); RED BLOOD COUNT 4.54 X10'6 (4.70-6.10); RED CELL DISTRIBUTION WIDTH 13.8 % (11.5-14.5); WHITE BLOOD COUNT 8.2 X10'3 (4.5-11.0)
[2021-10-05 06:57] LABS: ALBUMIN 2.9 G/DL (3.4-5.0); ANION GAP 8 (8-16); BLOOD UREA NITROGEN 18 MG/DL (7-18); BUN/CREATININE RATIO 22.5 (5.4-32.0); CALCIUM 8.2 MG/DL (8.5-10.1); CHLORIDE 111 MMOL/L (99-107); CHOL/HDL RATIO 8.9 (0.00-4.99); CHOLESTEROL 250 MG/DL (0-200); GLUCOSE 164 MG/DL (70-104); HDL CHOLESTEROL 28 MG/DL (35-60); LDL CHOLESTEROL 169 MG/DL (50-100); MAGNESIUM 1.9 MG/DL (1.5-2.4); POTASSIUM 3.5 MMOL/L (3.5-5.1); SODIUM 143 MMOL/L (135-145); TOTAL CARBON DIOXIDE 24.3 MMOL/L (24-32); TRIGLYCERIDES 265 MG/DL (20-135); eGFR > 90 ML/MIN
--- NOTE | 2021-10-05 07:19 | NUR ---
patient report given to isabela OROSCO, cleared for transfer to room 4014
[2021-10-05 07:45] VITALS: BP 137/77
[2021-10-05] MEDS: K and/or MAG REPLACEMENT MC SCH ×2 (08:00→20:00)
[2021-10-05 10:00] VITALS: BP 114/68
--- NOTE | 2021-10-05 11:51 | NUR ---
Diabetes consult: Pt w/ hx of DM A1c 13.3 per EMR. Provided pt w/ written and verbal DM ed w/ RD contact info. Addendum: 10/05/21 at [address] Amended: Links added.
[2021-10-05] MEDS ORDERED: NO HOME MEDS (13:21)
[2021-10-05] MEDS: normal saline 1000ml 1,000 ML IV SCH (14:52)
--- NOTE | 2021-10-05 15:31 | NUR ---
PAGER ID: [phone] MESSAGE: [id number] Cuco hyperglycemic protocol?
[2021-10-05] MEDS ORDERED: glucagon, human recombinant 1mg kit SUBCUT PRN (17:10)
[2021-10-05] MEDS ORDERED: MESSAGE TO PHARMACY PO ONE (17:10)
[2021-10-05] MEDS ORDERED: DEXTROSE 15 GM of carb/4 tabs (each vial/BOTTLE has 4 tablets) PO PRN ×2 (17:10)
[2021-10-05 18:00] VITALS: BP 153/75
--- NOTE | 2021-10-05 18:14 | NUR ---
Report to Shavonne OROSCO
[2021-10-05] MEDS ORDERED: METF-436 PO (18:15)
[2021-10-05] MEDS ORDERED: NICO-687 TOP (18:15)
[2021-10-05] MEDS ORDERED: GABA600T13 PO ×2 (18:15→18:21)
[2021-10-05] MEDS ORDERED: METF500T PO (18:21)
[2021-10-05] MEDS: atorvastatin 20mg tablet PO SCH (19:16)
[2021-10-05] MEDS: insulin glargine (Lantus) pen - multi-dose SQ SCH (21:05)
[2021-10-05] MEDS: insulin Lispro (HumaLOG) vial - multi-dose SQ SCH (21:07)
[2021-10-05 22:00] VITALS: BP 107/60
[2021-10-06 02:00] VITALS: BP 110/48
[2021-10-06] MEDS: normal saline 1000ml 1,000 ML IV SCH ×2 (04:23→12:29)
[2021-10-06 06:00] VITALS: BP 122/76
--- NOTE | 2021-10-06 06:47 | NUR ---
Problems reprioritized. Patient report given, questions answered & plan of care reviewed with KWESI JRARETT.
[2021-10-06 07:04] LABS: BASOPHILS % (AUTO) 0.6 % (0-1); EOSINOPHILS # (AUTO) 0.3 X10'3 (0-0.9); HEMATOCRIT 39.4 % (42.0-52.0); HEMOGLOBIN 13.1 g/dl (14.0-17.9); LYMPHOCYTES # (AUTO) 2.6 X10'3 (1.1-4.8); LYMPHOCYTES % (AUTO) 38.1 % (21-51); MEAN CORPUSCULAR HEMOGLOBIN 29.2 PG (27.0-31.0); MEAN CORPUSCULAR HGB CONC 33.3 g/dL (33.0-36.5); MEAN CORPUSCULAR VOLUME 87.7 FL (78-98); MEAN PLATELET VOLUME 8.6 FL (7.4-10.4); MONOCYTES # (AUTO) 0.6 X10'3 (0-0.9); MONOCYTES % (AUTO) 8.3 % (2-12); NEUTROPHILS # (AUTO) 3.3 X10'3 (1.8-7.7); PLATELET COUNT 308 X10'3 (140-440); RED BLOOD COUNT 4.49 X10'6 (4.70-6.10); RED CELL DISTRIBUTION WIDTH 13.7 % (11.5-14.5); WHITE BLOOD COUNT 6.7 X10'3 (4.5-11.0)
--- NOTE | 2021-10-06 07:09 | NUR ---
page Dr Yi moise order for asa & Plavix per doreen banda recommendation Addendum: 10/06/21 at 0732 by Mirtha Williamson RN Received orders for Plavix 75 mg PO daily and Aspirin 325Mg PO daily
[2021-10-06 07:32] LABS: ALBUMIN 2.7 G/DL (3.4-5.0); ANION GAP 9 (8-16); BLOOD UREA NITROGEN 18 MG/DL (7-18); BUN/CREATININE RATIO 22.5 (5.4-32.0); CHLORIDE 110 MMOL/L (99-107); GLUCOSE 167 MG/DL (70-104); MAGNESIUM 1.8 MG/DL (1.5-2.4); POTASSIUM 3.6 MMOL/L (3.5-5.1); SODIUM 142 MMOL/L (135-145); TOTAL CARBON DIOXIDE 23.1 MMOL/L (24-32); eGFR > 90 ML/MIN
[2021-10-06] MEDS: K and/or MAG REPLACEMENT MC SCH ×2 (07:42→20:00)
[2021-10-06] MEDS: atorvastatin 20mg tablet PO SCH (07:46)
[2021-10-06] MEDS: clopidogrel 75mg tablet PO SCH (07:46)
[2021-10-06] MEDS: aspirin 325mg tablet PO SCH (07:46)
[2021-10-06] MEDS: insulin Lispro (HumaLOG) vial - multi-dose SQ SCH ×2 (09:17→19:04)
[2021-10-06 10:00] VITALS: BP 118/75
[2021-10-06 14:15] VITALS: BP 108/57
--- NOTE | 2021-10-06 17:50 | NUR ---
MESSAGE: [id number] Eugeneoscarmarino walter CROWELL, surgery canceled, tested positive for covid. Tana [id number] Addendum: 10/07/21 at 1518 by Tana aVlenzuela RN wrong chart
[2021-10-06 18:00] VITALS: BP 119/68
--- NOTE | 2021-10-06 18:30 | NUR ---
Problems reprioritized. Patient report given, questions answered & plan of care reviewed with silas Fajardo.
--- NOTE | 2021-10-06 19:42 | NUR ---
MESSAGE: [id number] Cuoc Felipe 52 here for stroke, is requesting nicotine patch. he smokes about a pack/day. thank you. #[phone] Shavonne
[2021-10-06] MEDS: nicotine 21mg patch - 24 hr TD SCH (20:58)
[2021-10-06] MEDS: insulin glargine (Lantus) pen - multi-dose SQ SCH (21:01)
[2021-10-06 22:00] VITALS: BP 129/55
--- NOTE | 2021-10-06 22:47 | NUR ---
Dr Richmond called to order stat ekg and tele neuro. and she wanted show ekg to dr. Montana and confirm theres no afib. which confirmed by Dr Montana.
[2021-10-07 02:00] VITALS: BP 130/70
[2021-10-07] MEDS: normal saline 1000ml 1,000 ML IV SCH ×2 (03:00→21:43)
[2021-10-07 06:00] VITALS: BP 120/64
--- NOTE | 2021-10-07 06:29 | NUR ---
Problems reprioritized. Patient report given, questions answered & plan of care reviewed with KWESI JARRETT.
[2021-10-07 06:54] LABS: BASOPHILS # (AUTO) 0.1 X10'3 (0-0.2); BASOPHILS % (AUTO) 1.3 % (0-1); EOSINOPHILS # (AUTO) 0.2 X10'3 (0-0.9); EOSINOPHILS % (AUTO) 3.6 % (0-6); HEMATOCRIT 38.1 % (42.0-52.0); HEMOGLOBIN 12.9 g/dl (14.0-17.9); LYMPHOCYTES # (AUTO) 2.8 X10'3 (1.1-4.8); LYMPHOCYTES % (AUTO) 42.6 % (21-51); MEAN CORPUSCULAR HEMOGLOBIN 29.2 PG (27.0-31.0); MEAN CORPUSCULAR VOLUME 85.9 FL (78-98); MEAN PLATELET VOLUME 8.5 FL (7.4-10.4); MONOCYTES # (AUTO) 0.6 X10'3 (0-0.9); MONOCYTES % (AUTO) 8.6 % (2-12); NEUTROPHILS # (AUTO) 2.9 X10'3 (1.8-7.7); NEUTROPHILS % (AUTO) 43.9 % (42-75); PLATELET COUNT 329 X10'3 (140-440); RED BLOOD COUNT 4.43 X10'6 (4.70-6.10); RED CELL DISTRIBUTION WIDTH 13.6 % (11.5-14.5); WHITE BLOOD COUNT 6.6 X10'3 (4.5-11.0)
[2021-10-07 07:24] LABS: ALBUMIN 2.7 G/DL (3.4-5.0); ANION GAP 11 (8-16); BLOOD UREA NITROGEN 16 MG/DL (7-18); BUN/CREATININE RATIO 21.6 (5.4-32.0); CALCIUM 8.3 MG/DL (8.5-10.1); CHLORIDE 110 MMOL/L (99-107); CREATININE 0.74 MG/DL (0.60-1.10); GLUCOSE 152 MG/DL (70-104); MAGNESIUM 1.8 MG/DL (1.5-2.4); POTASSIUM 3.4 MMOL/L (3.5-5.1); SODIUM 144 MMOL/L (135-145); TOTAL CARBON DIOXIDE 23.4 MMOL/L (24-32); eGFR > 90 ML/MIN
[2021-10-07] MEDS: K and/or MAG REPLACEMENT MC SCH ×2 (08:00→20:00)
[2021-10-07] MEDS: insulin Lispro (HumaLOG) vial - multi-dose SQ SCH ×3 (08:58→18:41)
[2021-10-07] MEDS: atorvastatin 20mg tablet PO SCH (08:59)
[2021-10-07] MEDS: aspirin 325mg tablet PO SCH (09:00)
[2021-10-07] MEDS: clopidogrel 75mg tablet PO SCH (09:00)
[2021-10-07 10:00] VITALS: BP 116/67
--- NOTE | 2021-10-07 13:15 | NUR ---
Initial: Pt admit for left sided weakness d/t acute CVA. Pt s/p BSS with ST recs mechanical soft chopped food though pt only getting mechanical soft food that's not chopped, however pt eating well, documented with mostly 100% PO intake throughout LOS meeting estimated nutrient needs. LBM 10/04. No nutrition intervention implemented at this time. Will continue to follow. Recommendations: 1) Continue EC7 CHO controlled diet; monitor need for chopped food 2) Monitor need for additional protein for satiety 3) Bowel care PRN 4) Weekly scaled weights Addendum: 10/07/21 at [address] Amended: Links added.
[2021-10-07 14:00] VITALS: BP 116/63
[2021-10-07 18:00] VITALS: BP 117/57
[2021-10-07] MEDS: insulin glargine (Lantus) pen - multi-dose SQ SCH (21:34)
[2021-10-07] MEDS: nicotine 21mg patch - 24 hr TD SCH (21:37)
[2021-10-07 22:00] VITALS: BP 118/65
[2021-10-08 01:57] VITALS: BP 135/85
--- NOTE | 2021-10-08 01:59 | NUR ---
Report to Norma OROSCO
--- NOTE | 2021-10-08 03:26 | NUR ---
Assumed care of pt at this time, received report from Tana OROSCO. Reviewed physical assessment and in agreement.
[2021-10-08 06:00] VITALS: BP 129/58
--- NOTE | 2021-10-08 06:45 | NUR ---
Patient in room [facility] 4011. I have received report from Norma OROSCO and had the opportunity to ask questions and assume patient care.
[2021-10-08 06:52] LABS: BASOPHILS # (AUTO) 0.1 X10'3 (0-0.2); BASOPHILS % (AUTO) 1.9 % (0-1); EOSINOPHILS # (AUTO) 0.3 X10'3 (0-0.9); EOSINOPHILS % (AUTO) 3.8 % (0-6); HEMATOCRIT 39.4 % (42.0-52.0); HEMOGLOBIN 13.2 g/dl (14.0-17.9); LYMPHOCYTES # (AUTO) 2.6 X10'3 (1.1-4.8); LYMPHOCYTES % (AUTO) 38.2 % (21-51); MEAN CORPUSCULAR HEMOGLOBIN 29.2 PG (27.0-31.0); MEAN CORPUSCULAR HGB CONC 33.6 g/dL (33.0-36.5); MEAN CORPUSCULAR VOLUME 86.8 FL (78-98); MEAN PLATELET VOLUME 8.1 FL (7.4-10.4); MONOCYTES # (AUTO) 0.7 X10'3 (0-0.9); MONOCYTES % (AUTO) 10.1 % (2-12); NEUTROPHILS # (AUTO) 3.1 X10'3 (1.8-7.7); PLATELET COUNT 317 X10'3 (140-440); RED BLOOD COUNT 4.54 X10'6 (4.70-6.10); RED CELL DISTRIBUTION WIDTH 13.3 % (11.5-14.5); WHITE BLOOD COUNT 6.7 X10'3 (4.5-11.0)
[2021-10-08 06:59] LABS: ALBUMIN 2.9 G/DL (3.4-5.0); ANION GAP 9 (8-16); BLOOD UREA NITROGEN 15 MG/DL (7-18); BUN/CREATININE RATIO 20.3 (5.4-32.0); CALCIUM 8.3 MG/DL (8.5-10.1); CHLORIDE 111 MMOL/L (99-107); CREATININE 0.74 MG/DL (0.60-1.10); GLUCOSE 198 MG/DL (70-104); MAGNESIUM 1.7 MG/DL (1.5-2.4); POTASSIUM 3.5 MMOL/L (3.5-5.1); SODIUM 144 MMOL/L (135-145); TOTAL CARBON DIOXIDE 24.3 MMOL/L (24-32); eGFR > 90 ML/MIN
[2021-10-08] MEDS: normal saline 1000ml 1,000 ML IV SCH (07:23)
[2021-10-08] MEDS: clopidogrel 75mg tablet PO SCH (07:38)
[2021-10-08] MEDS: atorvastatin 20mg tablet PO SCH (07:38)
[2021-10-08] MEDS: aspirin 325mg tablet PO SCH (07:38)
[2021-10-08] MEDS: K and/or MAG REPLACEMENT MC SCH ×2 (07:39→20:00)
[2021-10-08] MEDS: nicotine 21mg patch - 24 hr TD SCH (07:39)
[2021-10-08] MEDS: insulin Lispro (HumaLOG) vial - multi-dose SQ SCH ×2 (09:25→18:48)
[2021-10-08 10:00] VITALS: BP 138/78
[2021-10-08 14:00] VITALS: BP 161/54
[2021-10-08 18:00] VITALS: BP 144/52
--- NOTE | 2021-10-08 18:12 | NUR ---
Patient in room [facility] 4011. I have received report from ALETA Hill and had the opportunity to ask questions and assume patient care.
--- NOTE | 2021-10-08 18:30 | NUR ---
I have reviewed and agree with all interventions, assessments, tasks performed, and documention by ALETA Hill.
--- NOTE | 2021-10-08 18:37 | NUR ---
Problems reprioritized. Patient report given, questions answered & plan of care reviewed with Tonya RIVER.
[2021-10-08] MEDS: insulin glargine (Lantus) pen - multi-dose SQ SCH (21:30)
[2021-10-08 22:00] VITALS: BP 136/71
[2021-10-09 02:00] VITALS: BP 147/69
[2021-10-09] MEDS: gabapentin 300mg capsule PO SCH ×3 (03:43→20:00)
[2021-10-09 06:00] VITALS: BP 153/80
--- NOTE | 2021-10-09 06:20 | NUR ---
Problems reprioritized. Patient report given, questions answered & plan of care reviewed with ALETA Hill.
--- NOTE | 2021-10-09 06:38 | NUR ---
Patient in room [facility] 4011. I have received report from ALETA Castaneda and had the opportunity to ask questions and assume patient care.
--- NOTE | 2021-10-09 07:19 | NUR ---
Agree with Tonya RIVER physical assessment except where I documented my findings.
[2021-10-09] MEDS: atorvastatin 20mg tablet PO SCH (07:35)
[2021-10-09] MEDS: clopidogrel 75mg tablet PO SCH (07:35)
[2021-10-09] MEDS: aspirin 325mg tablet PO SCH (07:35)
[2021-10-09] MEDS: nicotine 21mg patch - 24 hr TD SCH (07:36)
[2021-10-09] MEDS: K and/or MAG REPLACEMENT MC SCH ×2 (07:38→20:00)
[2021-10-09 08:21] LABS: BASOPHILS # (AUTO) 0.1 X10'3 (0-0.2); BASOPHILS % (AUTO) 1.2 % (0-1); EOSINOPHILS # (AUTO) 0.2 X10'3 (0-0.9); EOSINOPHILS % (AUTO) 3.1 % (0-6); HEMOGLOBIN 13.5 g/dl (14.0-17.9); LYMPHOCYTES # (AUTO) 2.4 X10'3 (1.1-4.8); LYMPHOCYTES % (AUTO) 32.3 % (21-51); MEAN CORPUSCULAR HEMOGLOBIN 28.9 PG (27.0-31.0); MEAN CORPUSCULAR HGB CONC 33.7 g/dL (33.0-36.5); MEAN CORPUSCULAR VOLUME 85.8 FL (78-98); MEAN PLATELET VOLUME 8.5 FL (7.4-10.4); MONOCYTES # (AUTO) 0.7 X10'3 (0-0.9); MONOCYTES % (AUTO) 9.3 % (2-12); NEUTROPHILS # (AUTO) 4.1 X10'3 (1.8-7.7); NEUTROPHILS % (AUTO) 54.1 % (42-75); PLATELET COUNT 353 X10'3 (140-440); RED BLOOD COUNT 4.66 X10'6 (4.70-6.10); RED CELL DISTRIBUTION WIDTH 13.4 % (11.5-14.5); WHITE BLOOD COUNT 7.5 X10'3 (4.5-11.0)
[2021-10-09 08:25] LABS: ALBUMIN 3.3 G/DL (3.4-5.0); ANION GAP 9 (8-16); BLOOD UREA NITROGEN 11 MG/DL (7-18); BUN/CREATININE RATIO 13.6 (5.4-32.0); CALCIUM 8.4 MG/DL (8.5-10.1); CHLORIDE 109 MMOL/L (99-107); CREATININE 0.81 MG/DL (0.60-1.10); GLUCOSE 175 MG/DL (70-104); POTASSIUM 3.6 MMOL/L (3.5-5.1); SODIUM 143 MMOL/L (135-145); TOTAL CARBON DIOXIDE 24.9 MMOL/L (24-32); eGFR > 90 ML/MIN
[2021-10-09] MEDS: insulin Lispro (HumaLOG) vial - multi-dose SQ SCH ×2 (09:47→13:49)
[2021-10-09 10:00] VITALS: BP 111/61
[2021-10-09 14:00] VITALS: BP 134/82
--- NOTE | 2021-10-09 17:15 | NUR ---
MOBILE DISC JOCKEY documentation: I have reviewed and agree with all interventions, assessments performed and documented by Liz Clayton LVN.
[2021-10-09 18:00] VITALS: BP 134/82
--- NOTE | 2021-10-09 18:10 | NUR ---
Patient in room [facility] 4011. I have received report from ALETA Hill and had the opportunity to ask questions and assume patient care.
--- NOTE | 2021-10-09 18:15 | NUR ---
Problems reprioritized. Patient report given, questions answered & plan of care reviewed with ALETA Castaneda.
--- NOTE | 2021-10-09 18:43 | NUR ---
After lunch insulin Humalog 11 units co-signed and given SQ by Liz Clayton WOODENWARE ASSEMBLER, not 300units as what EMAR shows.
[2021-10-09] MEDS: insulin glargine (Lantus) pen - multi-dose SQ SCH (21:00)
[2021-10-09 22:00] VITALS: BP 121/69
--- NOTE | 2021-10-10 03:02 | NUR ---
Agree with Tonya RIVER physical assessment except where I documented my findings.
[2021-10-10 06:00] VITALS: BP 143/73
--- NOTE | 2021-10-10 06:14 | NUR ---
Problems reprioritized. Patient report given, questions answered & plan of care reviewed with ALETA Hill.
--- NOTE | 2021-10-10 06:36 | NUR ---
Patient in room [facility] 4011. I have received report from ALETA Castaneda and had the opportunity to ask questions and assume patient care.
[2021-10-10] MEDS: gabapentin 300mg capsule PO SCH ×2 (07:10→20:05)
[2021-10-10] MEDS: atorvastatin 20mg tablet PO SCH (07:10)
[2021-10-10] MEDS: clopidogrel 75mg tablet PO SCH (07:10)
[2021-10-10] MEDS: K and/or MAG REPLACEMENT MC SCH ×2 (07:11→20:00)
[2021-10-10] MEDS: nicotine 21mg patch - 24 hr TD SCH (07:11)
[2021-10-10] MEDS: insulin Lispro (HumaLOG) vial - multi-dose SQ SCH ×4 (08:49→22:57)
[2021-10-10] MEDS: aspirin 325mg tablet PO SCH (08:57)
[2021-10-10 10:00] VITALS: BP 124/63
[2021-10-10 14:00] VITALS: BP 138/85
--- NOTE | 2021-10-10 16:38 | NUR ---
ACRYLIC FABRICATOR documentation: I have reviewed and agree with all interventions, assessments performed and documented by Liz Clayton LVN.
[2021-10-10 17:00] VITALS: BP 137/66
--- NOTE | 2021-10-10 18:28 | NUR ---
Patient in room [facility] 4011. I have received report from KWESI ORTEGA and had the opportunity to ask questions and assume patient care. Addendum: 10/10/21 at 1829 by Beth Tavarez RN Amended: Links added.
--- NOTE | 2021-10-10 18:33 | NUR ---
Problems reprioritized. Patient report given, questions answered & plan of care reviewed with KWESI Campos.
--- NOTE | 2021-10-10 20:08 | NUR ---
amb with cane with board saw runner 3 laps 900 ft. tolerated well.
[2021-10-10 22:00] VITALS: BP 153/84
[2021-10-10] MEDS: insulin glargine (Lantus) pen - multi-dose SQ SCH (23:00)
[2021-10-11 02:00] VITALS: BP 150/78
[2021-10-11 06:00] VITALS: BP 146/97
--- NOTE | 2021-10-11 06:19 | NUR ---
Problems reprioritized. Patient report given, questions answered & plan of care reviewed with KWESI ELLSWORTH. Addendum: 10/11/21 at 0620 by Beth Tavarez RN Amended: Links added.
--- NOTE | 2021-10-11 06:45 | NUR ---
Patient in room [facility] 4011B. I have received report from KWESI ANTONIO and had the opportunity to ask questions and assume patient care.
[2021-10-11] MEDS: atorvastatin 20mg tablet PO SCH (07:55)
[2021-10-11] MEDS: aspirin 325mg tablet PO SCH (07:56)
[2021-10-11] MEDS: clopidogrel 75mg tablet PO SCH (07:56)
[2021-10-11] MEDS: gabapentin 300mg capsule PO SCH (07:56)
[2021-10-11] MEDS: K and/or MAG REPLACEMENT MC SCH (08:00)
[2021-10-11] MEDS: nicotine 21mg patch - 24 hr TD SCH (08:02)
[2021-10-11] MEDS: insulin Lispro (HumaLOG) vial - multi-dose SQ SCH (08:57)
[2021-10-11] MEDS ORDERED: ATOR20TA66 PO (10:39)
[2021-10-11] MEDS ORDERED: ASPI-1 PO (10:39)
[2021-10-11] MEDS ORDERED: CLOP75TA34 PO (10:39)
[2021-10-11] MEDS ORDERED: LISI2.5T14 PO (10:57)
[2021-10-11 11:00] VITALS: BP 134/66
--- NOTE | 2021-10-11 15:34 | NUR ---
PATIENT STABLE AND APPROPRIATE FOR DISCHARGE, IV REMOVED, EDUCATION GIVEN, NEW MEDS E-SCRIPTED TO PREFERRED PHARMACY, ALL BELONGINGS SENT WITH PATIENT, TAXI CALLED AND PAID FOR BY HOSPITAL, PATIENT TAKEN TO LOBBY BY WHEELCHAIR TO AN AWAITING T[facility]I WHERE T[facility]I WILL TAKE PATIENT TO PHARMACY AND THEN [facility].
--- NOTE | 2021-10-11 16:48 | NUR ---
ANALYTICS DEVELOPER WORKING IN RESPITE CARE Addendum: 10/11/21 at 1649 by Norma Armstrong RN Amended: Links added.
== END 2021-10-11 16:49 | disposition home or self-care (01) | DRG 45 ==
LOC: ER 16:25 → ED HOLD 17:35 → EDBEDREQ 10-05 07:13 → ORTHO 4S 10-05 07:45
PROVIDERS: ADMIT Internal Medicine; ATTEND Internal Medicine
PROC: B3251ZZ Computerized Tomography (CT Scan) of Bilateral Common Carotid Arteries using Low Osmolar Contrast (ICD-10-PCS; principal; 2021-10-04)
PROC: B32R1ZZ Computerized Tomography (CT Scan) of Intracranial Arteries using Low Osmolar Contrast (ICD-10-PCS; 2021-10-04)
PROC: B3281ZZ Computerized Tomography (CT Scan) of Bilateral Internal Carotid Arteries using Low Osmolar Contrast (ICD-10-PCS; 2021-10-04)
PROC: B32G1ZZ Computerized Tomography (CT Scan) of Bilateral Vertebral Arteries using Low Osmolar Contrast (ICD-10-PCS; 2021-10-04)
DX: I63.9 Cerebral infarction, unspecified (principal); G81.94 Hemiplegia, unspecified affecting left nondominant side; E11.9 Type 2 diabetes mellitus without complications; F17.210 Nicotine dependence, cigarettes, uncomplicated; I10 Essential (primary) hypertension; G89.29 Other chronic pain; E78.5 Hyperlipidemia, unspecified; R29.710 NIHSS score 10; Z20.822 Contact with and (suspected) exposure to COVID-19; F15.90 Other stimulant use, unspecified, uncomplicated; R47.1 Dysarthria and anarthria; Z79.02 Long term (current) use of antithrombotics/antiplatelets; Z91.14 Patient's other noncompliance with medication regimen; Z59.00 Homelessness unspecified; Z79.84 Long term (current) use of oral hypoglycemic drugs; Z79.899 Other long term (current) drug therapy; Z71.6 Tobacco abuse counseling
CPT/HCPCS: 36415; 70450; 70496; 70498; 70551; 71045; 80048; 80053; 80061; 80305; 81001; 82948; 83036; 83735; 84484; 85025; 85610; 86885; 86900; 86901; 87081; 87811; 92508; 92616; 93005; 93306; 97110; 97112; 97116; 97162; 97530; 99285; G0378; J1815; J3490; J7030; Q9967